=== PATIENT | female | born 1955 | race Caucasian/White ===

== ENCOUNTER → 2016-08-04 | Outpatient (CLI) | payer BC ==
[~2016-08-04] MED LIST: ASPI325T4 PO; DABI150C PO; DLT120CCR PO; FLEC50TA3 PO; LSNP10T PO; MTP50T PO
--- NOTE | 2016-08-04 19:51 | Diagnostic Imaging Report ---
INDICATION: Screening. COMPARISON: 07/18/2015. The current digital study was evaluated with a Computer Aided Detection (CAD). FINDINGS: There are no infiltrates or masses that have developed. There is no architectural distortion. No clustered calcification. IMPRESSION: Stable bilateral mammogram. Routine followup recommended. ACR BI-RADS Category 1: Negative. Result letter will be mailed to the patient. Note: At least 10% of breast cancer is not imaged by mammography. Dictated by: Dictated on workstation # [id number]
== END ==
LOC: RAD 08:15
PROVIDERS: ATTEND Family Medicine
DX: Z12.31 Encounter for screening mammogram for malignant neoplasm of breast (principal)